=== PATIENT | female | born 1940 | race Caucasian/White ===

== ENCOUNTER 2017-03-07 11:39 | Emergency (ER) | payer MEDICARE ==
[2017-03-07 11:57] VITALS: RESP 18; O2SAT 99
[2017-03-07] MEDS ORDERED: Belladonna-Phenobarbital PO STA (12:19)
[2017-03-07] MEDS ORDERED: Sodium Chloride 0.9% 1,000 ML IV ONE (12:19)
[2017-03-07] MEDS ORDERED: Aluminum Hydroxide/Magnesium Hydroxide Susp (30 mL) PO STA (12:19)
[2017-03-07] MEDS ORDERED: Belladonna-Phenobarbital ONE (12:35)
[2017-03-07] MEDS ORDERED: Sodium Chloride 0.9% 1,000 ML ONE (12:36)
[2017-03-07] MEDS ORDERED: Aluminum Hydroxide/Magnesium Hydroxide Susp (30 mL) ONE (12:36)
[2017-03-07 12:58] LABS: BASO % 0.5 % (0.0-2.0); EOS # 0.1 K/uL (0.0-0.7); EOS % 2.1 % (0.0-4.0); HEMATOCRIT 37.2 % (34.0-47.0); LYMPH # 1.6 K/uL (1.0-4.3); LYMPH % 27.9 % (20.0-40.0); MEAN CELL VOLUME 93.6 fL (81.0-99.0); MEAN CORPUSCULAR HEMOGLOBIN 31.7 pg (27.0-31.0); MEAN CORPUSCULAR HGB CONC 33.9 g/dL (33.0-37.0); MEAN PLATELET VOLUME 9.3 fL (7.2-11.7); MONO # 0.5 K/uL (0.0-0.8); MONO % 7.8 % (0.0-10.0); RED CELL DISTRIBUTION WIDTH 13.1 % (11.5-14.5); WHITE BLOOD COUNT 5.8 K/uL (4.8-10.8)
[2017-03-07 13:16] LABS: CHLORIDE 101 mmol/L (98-107); SODIUM 137 mmol/L (132-148)
[2017-03-07 13:17] LABS: POTASSIUM 4.2 mmol/L (3.6-5.2)
[2017-03-07 13:19] LABS: ALB/GLOB RATIO 1.1 (1.0-2.1); ALKALINE PHOSPHATASE 60 U/L (38-126); ALT/SGPT 33 U/L (9-52); AST/SGOT 25 U/L (14-36); BILIRUBIN,TOTAL 0.3 mg/dL (0.2-1.3); BLOOD UREA NITROGEN 19 mg/dL (7-17); CALCIUM 9.2 mg/dl (8.6-10.4); CARBON DIOXIDE 28 mmol/L (22-30); GFR AFRICAN-AMERICAN > 60; GLUCOSE,RANDOM 93 mg/dL (65-105)
--- NOTE | 2017-03-07 14:07 | C.PDOC ---
History Of Present Illness 76 yr old female presents to the ER with complaints of diffuse abdominal pain for 1 week. Patient states the pain started after eating at a buffet. However, patient states she was able to eat and drink normally with no increase in pain. Patient denies fever, nausea, vomiting, diarrhea, constipation or dysuria. Time Seen by Provider: 03/07/17 12:18 Chief Complaint (Nursing): Abdominal Pain History Per: Patient History/Exam Limitations: no limitations Onset/Duration Of Symptoms: Days (1 week) Location Of Pain/Discomfort: Diffuse Past Medical History Reviewed: Historical Data, Nursing Documentation, Vital Signs Vital Signs: Last Vital Signs Temp 97.6 F 03/07/17 15:02 Pulse 59 L 03/07/17 15:02 Resp 18 03/07/17 15:02 BP 179/73 H 03/07/17 15:02 Pulse Ox 99 03/07/17 15:02 Family History: States: No Known Family Hx - Social History Hx Alcohol Use: No Hx Substance Use: No - Immunization History Hx Tetanus Toxoid Vaccination: No Hx Influenza Vaccination: No Hx Pneumococcal Vaccination: No Review Of Systems Except As Marked, All Systems Reviewed And Found Negative. Constitutional: Negative for: Fever Gastrointestinal: Positive for: Abdominal Pain (Diffuse). Negative for: Nausea , Vomiting, Diarrhea, Constipation Genitourinary: Negative for: Dysuria Physical Exam - Physical Exam Appears: Non-toxic, No Acute Distress Skin: Warm, Dry, No Rash Head: Atraumatic, Normacephalic Oral Mucosa: Moist Chest: Symmetrical, No Tenderness Cardiovascular: Rhythm Regular, No Murmur Respiratory: Normal Breath Sounds, No Rales, No Rhonchi, No Stridor, No Wheezing Gastrointestinal/Abdominal: Soft, Tenderness (Minimal diffuse tenderness), No Guarding, No Rebound Extremity: Normal ROM, No Swelling Neurological/Psych: Oriented x3, Normal Speech, Normal Motor ED Course And Treatment - Laboratory Results Result Diagrams: 03/07/17 12:55 03/07/17 12:55 ECG: Interpreted By Me ECG Rhythm: Sinus Rhythm ECG Interpretation: Normal Interpretation Of ECG: Left axis deviation. Rate From EC (BPM) O2 Sat by Pulse Oximetry: 99 (RA) Pulse Ox Interpretation: Normal - CT Scan/US US - Abdomen Other Rad Studies (CT/US): Read By Radiologist, Radiology Report Reviewed CT/US Interpretation: Abdominal ultrasound. History: Abdominal pain. Comparison: None available. Technique: Real-time sonography was performed through the abdomen. Findings: Liver: 14.3 centimeters in length. Increased echogenicity of the hepatic parenchymal cortex suggestive for fatty infiltration versus hepatic parenchymal disease. Clinical correlation. Gallbladder is preserved. Normal wall thickness of 2.2 millimeters. Common bile duct measures 2.2 millimeters, within normal limits. Visualized portions of the pancreas are preserved. Pancreatic tail not well visualized. Spleen measures 8.7 centimeters in length, within normal limits. Visualized aorta and IVC are preserved. Right kidney: 9.7 x 3.8 x 3.9 centimeters. No calculi or hydronephrosis. Left kidney: 9.7 x 4.5 x 5.0 centimeters. No calculi or hydronephrosis. Impression: Increased echogenicity of the hepatic parenchymal cortex suggestive for fatty infiltration versus hepatic parenchymal disease. Clinical correlation. Medical Decision Making Medical Decision Making: PLAN: * US - Abdomen * CBC * CMP * Troponin * Urinalysis * PO * Maalox PO * Pepcid IVP * Sodium Chloride IV Disposition - Disposition Referrals: [facility] Radha Yadav, [Non-Staff] - Disposition: HOME/ ROUTINE Disposition Time: 14:15 Condition: IMPROVED Additional Instructions: Thank you for letting us take care of you today. Your provider was Dr. Herbert. You were treated for abdominal pain and urinary tract infection. The emergency medical care you received today was directed at your acute symptoms. If you were prescribed any medication, please fill it and take as directed. It may take several days for your symptoms to resolve. Return to the Emergency Department if your symptoms worsen, do not improve, or if you have any other problems. Please contact your doctor or call one of the physicians/clinics you have been referred to that are listed on the Patient Visit Information form that is included in your discharge packet. Bring any paperwork you were given at discharge with you along with any medications you are taking to your follow up visit. Our treatment cannot replace ongoing medical care by a primary care provider (PCP) outside of the emergency department. Thank you for allowing the [facility] team to be part of your care today. Follow up with your doctor in 2-3 days for re-evaluation and further management. Prescriptions: Nitrofurantoin Macrocrystals [Macrobid] 100 mg PO Q12 #10 cap Ranitidine HCl [Zantac] 150 mg PO BID #20 tablet Instructions: Urinary Tract Infection in Women (ED), Abdominal Pain (ED) Forms: [facility] (Swedish) - Clinical Impression Clinical Impression: UTI (urinary tract infection), Gastritis - Scribe Statement The provider has reviewed the documentation as recorded by the Lindaibjyotsna Carias Provider Attestation: All medical record entries made by the Lindaibjyotsna were at my direction and personally dictated by me. I have reviewed the chart and agree that the record accurately reflects my personal performance of the history, physical exam, medical decision making, and the department course for this patient. I have also personally directed, reviewed, and agree with the discharge instructions and disposition.
[2017-03-07 14:11] LABS: RBC URINE 2 /hpf (0-3); URINE BACTERIA RARE (<OCC); URINE BILIRUBIN NEGATIVE (NEGATIVE); URINE BLOOD NEGATIVE (NEGATIVE); URINE COLOR Straw (YELLOW); URINE GLUCOSE (UA) NORMAL (Normal); URINE KETONE NEGATIVE (NEGATIVE); URINE LEUKOCYTE ESTERASE 3+ Leu/uL (Negative); URINE PROTEIN NEGATIVE (NEGATIVE); URINE UROBILINOGEN NORMAL mg/dL (0.2-1.0); WBC URINE 26 /hpf (0-5)
--- NOTE | 2017-03-07 14:16 | US ---
Abdominal ultrasound History: Abdominal pain. Comparison: None available. Technique: Real-time sonography was performed through the abdomen. Findings: Liver: 14.3 centimeters in length. Increased echogenicity of the hepatic parenchymal cortex suggestive for fatty infiltration versus hepatic parenchymal disease. Clinical correlation. Gallbladder is preserved. Normal wall thickness of 2.2 millimeters. Common bile duct measures 2.2 millimeters, within normal limits. Visualized portions of the pancreas are preserved. Pancreatic tail not well visualized. Spleen measures 8.7 centimeters in length, within normal limits. Visualized aorta and IVC are preserved. Right kidney: 9.7 x 3.8 x 3.9 centimeters. No calculi or hydronephrosis. Left kidney: 9.7 x 4.5 x 5.0 centimeters. No calculi or hydronephrosis. Impression: Increased echogenicity of the hepatic parenchymal cortex suggestive for fatty infiltration versus hepatic parenchymal disease. Clinical correlation.
[2017-03-07 15:02] VITALS: BP 179/73; PULSE 59; TEMP 97.6
--- NOTE | 2017-03-10 12:43 | CARD ---
APPROVED REPORT EKG Measurement Heart [id number] <Conclusion> Sinus rhythm with occasional premature ventricular complexes Otherwise normal ECG
== END 2017-03-07 15:03 | disposition home or self-care (01) ==
LOC: C.ER 11:39
DX: K29.70 Gastritis, unspecified, without bleeding (principal); N39.0 Urinary tract infection, site not specified
CPT/HCPCS: 76700; 80053; 81001; 83690; 84484; 85025; 96374; 99285; J7040

== ENCOUNTER 2017-08-01 12:41 | Emergency (ER) | payer MEDICARE ==
--- NOTE | 2017-08-01 13:25 | C.PDOC ---
History Of Present Illness 77-YEAR-OLD FEMALE, PRESENTS TO THE EMERGENCY DEPARTMENT CONCERNED FOR POSSIBLE PERSISTENT FB BOTTOM R FOOT, AFTER STEPPING ON "SOME UNK THING" 3 WEEKS AGO. PATIENT NOTES PERSISTENT INTERMITTENT PAIN TO BOTTOM OF FOOT WITH WEIGHT BEAR Exam R FOOT NO GROSS ABNORMALITY OR PUNCTURE WOUND. ?SUBCUTANEOUS FB VS SCAR TISSUE UNDER 2MM NO REDNESS SWELL Time Seen by Provider: 08/01/17 13:20 Chief Complaint (Nursing): Abnormal Skin Integrity History Per: Patient History/Exam Limitations: no limitations Onset/Duration Of Symptoms: Days Current Symptoms Are (Timing): Still Present Past Medical History Reviewed: Historical Data, Nursing Documentation, Vital Signs Vital Signs: Last Vital Signs Temp Pulse 70 08/01/17 12:57 Resp 18 08/01/17 12:57 BP 152/77 H 08/01/17 12:57 Pulse Ox 98 08/01/17 14:15 Family History: States: No Known Family Hx - Social History Hx Alcohol Use: No Hx Substance Use: No - Immunization History Hx Tetanus Toxoid Vaccination: No Hx Influenza Vaccination: No Hx Pneumococcal Vaccination: No Review Of Systems Constitutional: Negative for: Fever, Chills Gastrointestinal: Negative for: Vomiting Musculoskeletal: Positive for: Foot Pain Neurological: Negative for: Weakness, Numbness Physical Exam - Physical Exam Appears: Well, Non-toxic, No Acute Distress Skin: Normal Color, Warm, Dry, No Rash Head: Normacephalic Eye(s): bilateral: PERRL Extremity: Other (R FOOT NO GROSS ABNORMALITY OR PUNCTURE WOUND. ?SUBCUTANEOUS FB VS SCAR TISSUE UNDER 2MM NO REDNESS SWELL) Neurological/Psych: Oriented x3, Normal Speech ED Course And Treatment O2 Sat by Pulse Oximetry: 98 (RA) Pulse Ox Interpretation: Normal Disposition Counseled Patient/Family Regarding: Studies Performed, Diagnosis, Need For Followup - Disposition Referrals: PODIATRY,CLINIC [Other] Disposition: HOME/ ROUTINE Disposition Time: 15:26 Condition: GOOD Instructions: Plantar Fasciitis Exercises Forms: [facility] (Tajik) - Clinical Impression Clinical Impression: Plantar fasciitis - Scribe Statement The provider has reviewed the documentation as recorded by the Scribe (ALICE FERNANDEZ) All medical record entries made by the Scribe were at my direction and personally dictated by me. I have reviewed the chart and agree that the record accurately reflects my personal performance of the history, physical exam, medical decision making, and the department course for this patient. I have also personally directed, reviewed, and agree with the discharge instructions and disposition.
--- NOTE | 2017-08-01 14:57 | RAD ---
PROCEDURE: Right Foot Radiographs. HISTORY: POSSIBLE FOREIGN BODY COMPARISON: None. FINDINGS: BONES: Normal. No fracture. JOINTS: Hallux valgus. No evidence of arthritis. SOFT TISSUES: No radiopaque foreign body identified. OTHER FINDINGS: None. IMPRESSION: No radiopaque foreign body. Hallux valgus.
[2017-08-01 15:46] VITALS: BP 151/80; PULSE 68; RESP 16; O2SAT 99
--- NOTE | 2017-08-01 23:07 | CP.PCM.CON ---
History of Present Illness - History of Present Illness History of Present Illness: Podiatry Consult note: Dr. Rivera 77 year old female with no significant PMHx was seen and evaluated at bedside in ED for right heel pain. Patient reports that about a month ago she felt like she stepped on a piece of glass and felt a sharp pain in the heel. Patient reports that she did not see any cuts or bleeding after stepping on a foreign object. Patient reports that since then she has been having pain in the right heel. Patient grades her pain as 2/10 on a VAS and reports that its sharp. Patient denies of any trauma that may have occured at the time of the injury. Patient denies of taking any pain medications. Denies of any other treatment prior to coming to the ED. Denies of having recent F/N/V/C/SOB/CP. Denies of any other pedal complains at this time PMHx: Denies PSHx: Denies Allergies: N.K.D.A SHx: Denies smoking, EtOH or illicit drug usage Review of Systems - Constitutional Constitutional: As Per HPI Past Patient History - Infectious Disease Hx of Infectious Diseases: None - Past Social History Smoking Status: Never Smoked - PSYCHIATRIC Hx Substance Use: No - SURGICAL HISTORY Hx Surgeries: No - ANESTHESIA Hx Anesthesia: No Meds Allergies/Adverse Reactions: Allergies Allergy/AdvReac Type Severity Reaction Status Date / Time No Known Allergies Allergy Verified 08/01/17 13:00 Physical Exam - Constitutional Appears: Well, Non-toxic, No Acute Distress - Head Exam Head Exam: ATRAUMATIC - Extremities Exam Additional comments: Right LE focused exam: VASC: DP/PT pulses are palpable 2/4, Cap refill time: < 3 sec to all digits, Temp gradient: warm to cool from proximal to distal, no pitting or non-pitting edema noted DERM: no open lesions, no erythema, no skin breaks, no signs of ecchymosis, no signs of acute injury, no clinical suspicion of active infection NEURO: Protective sensation grossly intact ORTHO: mild pain during palpation of the medial tubercle of the calcaneus, pain localized to the medial tubercle, MMT: 5/5 in all 4 directions. - Neurological Exam Neurological exam: Alert, Normal Gait, Oriented x3 - Psychiatric Exam Psychiatric exam: Normal Affect, Normal Mood Results - Vital Signs Recent Vital Signs: Last Vital Signs Temp Pulse 68 03/09/18 15:35 Resp 16 08/01/17 15:35 BP 151/80 H 08/01/17 15:35 Pulse Ox 99 08/01/17 15:35 Assessment & Plan - Assessment and Plan (Free Text) Assessment: 77 year old female with no significant PMHx evaluated for right foot plantar fasciitis Plan: Patient seen and evaluated Discussed plan with attending Dr. Rivera X-rays of the right foot ordered/reviewed - no increase in soft tissue density, no foreign body found in the soft tissue Clinically, patient does not have any skin break or signs of healed skin break at the site of pain - pain is similar to plantar fasciitis pain in nature Educated patient of the etiology of the pain Educated patient to perform daily stretching exercises Educated patient to follow up in podiatry clinic for further care Patient demonstrated verbal understanding and agreed with the proposed plan Thank you for the podiatry consult and allowing to take part in patient care - Date & Time Date: 08/02/17 Time: 15:30
== END 2017-08-01 15:36 | disposition home or self-care (01) ==
LOC: C.ER 12:41
DX: M72.2 Plantar fascial fibromatosis (principal); W25.XXXA Contact with sharp glass, initial encounter